=== PATIENT | female | born 1970 | race Caucasian/White ===

== ENCOUNTER 2018-06-22 12:42 | Emergency (ER) | payer OTHER ==
[2018-06-22] MEDS: ONDANSETRON (ODT) 4 MG TAB ODT (15:17)
[2018-06-22] MEDS: ACETAMINOPHEN 500 MG TAB PO (15:17)
[2018-06-22] MEDS: KETOROLAC 60 MG INJ IM (15:18)
== END 2018-06-22 16:10 | disposition home or self-care (01) ==
LOC: FTE 12:42
DX: B34.9 Viral infection, unspecified (principal)
CPT/HCPCS: 81025; 96372; 99284-25